=== PATIENT | male | born 1955 | race Caucasian/White ===

== ENCOUNTER 2017-11-15 13:01 | Outpatient (CLI) | payer BC ==
[~2017-11-15 13:01] MED LIST: Iopamidol 370 76% 100 ML VIAL ONE
--- NOTE | 2017-11-15 14:37 | CT ---
CT CHEST WITH IV CONTRAST: Date: 11/15/17 HISTORY: Abnormal prior imaging, follow-up exam. FINDINGS: Comparison made with exam of 04/12/17. No evidence of mediastinal, hilar, or axillary mass or lymphadenopathy seen. There are vascular calci fications without evidence of aneurysmal dilatation of the thoracic aorta. No pleural or pericardial effusions are seen. A small hiatal hernia is again noted. Postsurgical changes in the stomach and at the GE junction are again noted. Cysts in the kidneys are redemonstrated. Diffuse reticulonodular infiltrates in the lung hernandez are again seen. Scarring in the lung bases aga in noted. There are degenerative changes in the spine. IMPRESSION: Stable exam with bilateral diffuse reticulonodular infiltrates and scarring at the lung bases. POS: [facility]
== END 2017-11-15 13:02 | disposition home or self-care (01) ==
LOC: SCSCT 13:01
PROVIDERS: ATTEND Internal Medicine Critical Care Medicine
DX: R05 Cough (principal); J98.4 Other disorders of lung
CPT/HCPCS: 71260

== ENCOUNTER 2019-01-06 13:02 | Outpatient (CLI) | payer BC ==
[2019-01-06 14:45] LABS: Estimated GFR-MDRD - POC Greater than 90
--- NOTE | 2019-01-06 17:37 | CT ---
CT OF THE CHEST WITH CONTRAST: 01/06/19 COMPARISON: 11/15/17, 04/12/17. HISTORY: Abnormal findings seen on prior chest x-ray. TECHNIQUE: Multiple contiguous axial images were obtained in a CT of the chest with contrast. Coronal reformats were performed. FINDINGS: There is diffuse increased reticulonodular opacities in the lungs. This is more prominent in the lung bases and more prominent in the right lung than the left. A 1.0 cm mass-like area of opacity in the left lung base may represent atelectasis. More wedge shaped peripheral opacities in the left lung bas e also likely represent atelectasis. A 9 mm area of mass-like opacity in the right middle lobe may re present scarring or atelectasis. No pneumothorax or pleural effusion are seen. The heart is normal in size. There is a small hiatal hernia. Postsurgical changes are seen in the sto mach. No hilar or mediastinal lymphadenopathy are seen. The visualized subdiaphragmatic structures are unremarkable. Degenerative changes are seen in the spi ne. The chest wall soft tissues are unremarkable. IMPRESSION: 1. Nonspecific diffuse reticulonodular opacities in the lungs. 2. Peripheral opacities in the left lung base and in the right middle lobe may represent scarrin g or atelectasis. Masses cannot be entirely excluded. When compared to the prior examinations, the re ticulonodular pattern and the mass-like peripheral opacities are increasing, particularly when compar ed to the exam from 2017. POS: [facility]
== END 2019-01-06 13:03 | disposition home or self-care (01) ==
LOC: SCSCT 13:02
PROVIDERS: ATTEND Internal Medicine Critical Care Medicine
DX: R93.89 Abnormal findings on diagnostic imaging of other specified body structures (principal); R91.8 Other nonspecific abnormal finding of lung field
CPT/HCPCS: 71260; 82565

== ENCOUNTER 2019-01-29 10:03 | Outpatient (CLI) | payer BC ==
--- NOTE | 2019-01-29 13:31 | PET ---
EXAM: PET/CT HISTORY: Abnormal finding on CT scan of 01/06/2019. TECHNIQUE: PET scanning with CT attenuation correction was performed from the base of the brain to the proximal thighs following the intravenous administration of 12 millicuries [id number]. COMPARISON: None. CORRELATION: CT chest dated 01/06/2019 FINDINGS: No ana laura hypermetabolism is seen in the neck, chest, axillae, abdomen, pelvis or inguinal regions. There are hyper metabolic new areas of consolidation in the upper lobes bilaterally with an SUV of 3 on the right and 3.5 on the left. There is a 9 mm new paraspinal nodule in the superior segment of the right lower lobe with an SUV of 2.4. These findings are likely due to infection. No hypermetabolic liver, adrenal or skeletal lesions are seen. There is physiologic activity in the GI and tracts and the visualized portions of the brain. The CT scan used for attenuation correction demonstrates no evidence of pleural effusions or ascites. IMPRESSION: Hypermetabolic areas of consolidation in the lungs are likely due to infection. Recommend follow-up w ith CT scan after course of antibiotics.
== END 2019-01-29 10:04 | disposition home or self-care (01) ==
LOC: PET 10:03
PROVIDERS: ATTEND Internal Medicine Critical Care Medicine
DX: R93.89 Abnormal findings on diagnostic imaging of other specified body structures (principal)
CPT/HCPCS: 78815; A9552

== ENCOUNTER 2019-04-16 09:36 | Outpatient (CLI) | payer BC ==
--- NOTE | 2019-04-16 16:01 | CT ---
CT OF THE CHEST WITH CONTRAST 04/16/19 COMPARISON: 01/06/19. PET CT 01/29/19. HISTORY: Six cases of pneumonia since 2011. Abnormal PET scan in January. TECHNIQUE: Multiple contiguous axial images were obtained in a CT of the chest with contrast. Coronal reformats were performed. FINDINGS: There is significant improvement in the air space opacities seen in the lungs on the prior examinatio ns. Increased interstitial lung markings are seen in the bilateral lung bases. There is a subtle air space opacity measuring approximately 7 mm in size in the right upper lobe on image 28 of 65. No othe r infiltrates or nodules are seen. Scarring is seen in the left lung base. No pneumothorax or pleural effusion are seen. The heart is normal in size. Postsurgical changes are seen in the gastroesophageal junction. A fluid filled distended esophagus is seen. No hilar or mediastinal lymphadenopathy are seen. The visualized subdiaphragmatic structures and chest wall soft tissues are unremarkable. Degenerative changes are seen in the spine. IMPRESSION: 1. Interval improvement in multifocal pneumonia. 2. Fluid filled esophagus. This may be secondary to postsurgical changes at the gastroesophageal junction. Recurring aspiration causing the multifocal pneumonia is a possibility given the significa nt enlargement and fluid distention of the esophagus. POS: [facility]
== END 2019-04-16 09:37 | disposition home or self-care (01) ==
LOC: SCSCT 09:36
PROVIDERS: ATTEND Internal Medicine Critical Care Medicine
DX: R93.89 Abnormal findings on diagnostic imaging of other specified body structures (principal); J18.9 Pneumonia, unspecified organism
CPT/HCPCS: 71260; 82565; Q9967

== ENCOUNTER 2019-05-25 10:27 | Outpatient (CLI) | payer BC ==
--- NOTE | 2019-05-25 15:03 | CT ---
ABDOMEN CT WITH AND WITHOUT CONTRAST PELVIC CT WITH AND WITHOUT COTNRAST: HISTORY: Gastric sleeve. Appendectomy. Gross hematuria. FINDINGS: There are extensive nodular densities in the visualized lung bases. Correlation made with a CT chest from 04/16/2019 demonstrates a similar finding. Stable focal opacity in the right lower lobe measuri ng 1.1 x 1.3 cm. Liver, spleen, pancreas, and adrenal glands have appropriate attenuation and enhancement. No gastrohepatic, retrocrural, or periportal lymphadenopathy. There is stranding of the left abdominal mesentery, nonspecific. The findings are similar to a CT us ed for attenuation correction on a PET scan from January 29, 2019. There is a small amount of perineph edgard fluid and stranding. There is a small amount of fluid in both pericolic gutters. Findings are u nchanged. There is evidence of previous bariatric surgery. No evidence of bowel obstruction. The ileocecal ju nction is unremarkable. 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 Appendix is not appreciated. No evidence of inflammatory change of the cecal apex. Diverticulosis, without evidence of diverticulitis. RENAL CT: Noncontrast CT does not demonstrate any evidence of nephrolithiasis or significant perinephric fat st randing. Postcontrast images demonstrate symmetric enhancement of the renal parenchyma. Subcentimet er hypodensities of the left and right renal cortex are noted. The majority of the hypodensities in the right renal cortex are too small to characterize. There is a cyst in the mid ole left kidney fantasma suring 2.1 x 1.4 cm with an attenuation coefficient of -6 Hounsfield units on the noncontrast study. Delayed images demonstrate symmetric excretion into a nondistended/dilated intra- or extrarenal jacek ecting system. No filling defects. CT PELVIS: There is bladder wall thickening and perivesicular fat stranding. Correlate for cystitis versus a ne oplasm involving the bladder. No pelvic mass, lymphadenopathy, free air, or free fluid. There are no lytic or blastic lesions within the osseous structures. IMPRESSION: 1. No evidence of a renal mass. 2. No evidence of obstructive uropathy. 3. Bladder wall thickening and perivesicular stranding. Correlate for infectious or inflammatory pr ocess. Neoplasm could not be excluded. Consider a cystoscopy. POS: OFF
== END 2019-05-25 10:28 | disposition home or self-care (01) ==
LOC: SCSCT 10:27
PROVIDERS: ATTEND Urology
DX: R31.0 Gross hematuria (principal); N32.89 Other specified disorders of bladder
CPT/HCPCS: 74178; 82565; Q9967

== ENCOUNTER 2019-10-15 09:23 | Outpatient (CLI) | payer BC ==
--- NOTE | 2019-10-15 11:00 | RAD ---
UPPER GI: HISTORY: Previous gastric sleeve. Multiple episodes of recurrent pneumonia. COMPARISON: None. Exposure: 2.3 minutes, 170.18 mGy. 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 Patient was administered thick barium along with effervescent crystals, followed by thin barium. There is moderate distention of the thoracic esophagus with abrupt tapering near the gastroesophageal junction. Residual stomach from a previous gastric sleeve does not demonstrate any obvious filling defects. During intermittent fluoroscopy, there are numerous episodes of severe reflux along with ter tiary contractions. Contrast opacifies a grossly normal residual stomach and proximal small bowel loops. Postprocedure radiograph demonstrates persistent residual contrast in the distended thoracic esophagu s. There is a delay in passage of contrast despite appropriate delay. Note, all of the contrast is not delayed in terms of passage from the esophagus into the stomach. Lateral fluoroscopic view performed after the procedure demonstrates contrast opacifying the airway s uggesting at least a component of penetration. Better evaluation with speech pathologist is recommended. IMPRESSION: 1. Significant delay in passage of contrast from the dilated esophagus into the residual stomach. The re is evidence of significant reflux. 2. There is evidence of penetration with the thick and thin liquid consistencies. Dedicated modified barium swallow in the presence of speech pathologist is recommended. CODE T Transcribed Date/Time: 10/15/2019 11:06 AM
== END 2019-10-15 09:24 | disposition home or self-care (01) ==
LOC: RAD 09:23
PROVIDERS: ATTEND Physician Assistant Medical
DX: Z12.11 Encounter for screening for malignant neoplasm of colon (principal); J18.9 Pneumonia, unspecified organism; K21.9 Gastro-esophageal reflux disease without esophagitis
CPT/HCPCS: 74246

== ENCOUNTER 2019-10-20 09:52 | Outpatient (CLI) | payer BC ==
--- NOTE | 2019-10-21 09:45 | RAD ---
Exam: Modified barium swallow, the presence speech pathologist HISTORY: Dysphagia, oral pharyngeal phase. Gastroesophageal reflux disease without esophagitis FINDINGS: In the presence of speech pathologist, the patient was administered puree, nectar thick, thin liquid, mechanical soft and regular texture consistencies. Patient was also administered a barium tablet. There is premature spillage. There is evidence of penetration and aspiration. IMPRESSION: Penetration and aspiration. Please of a speech pathologist report for feeding recommendat ion
== END 2019-10-20 09:53 | disposition home or self-care (01) ==
PROVIDERS: ATTEND Physician Assistant Medical
DX: R13.12 Dysphagia, oropharyngeal phase (principal); K21.9 Gastro-esophageal reflux disease without esophagitis
CPT/HCPCS: 74230

== ENCOUNTER 2021-03-29 15:28 | Outpatient (CLI) | payer BC | END 2021-03-29 15:29 | disposition home or self-care (01) | LOC: BICRAD 15:28 | PROVIDERS: ATTEND Internal Medicine Infectious Disease | DX: M86.9 Osteomyelitis, unspecified (principal); Z98.890 Other specified postprocedural states ==

== ENCOUNTER 2022-07-02 13:29 | Day surgery (SDC) | payer BC | END 2022-07-02 19:23 | disposition home or self-care (01) | LOC: ONC/OP 13:29 | PROVIDERS: ATTEND Internal Medicine | DX: Z45.2 Encounter for adjustment and management of vascular access device (principal) | CPT/HCPCS: 96523; 99211; G0463 ==

== ENCOUNTER 2023-09-05 10:55 | Outpatient (CLI) | payer BC | END 2023-09-05 10:56 | disposition home or self-care (01) | LOC: SCSRAD 10:55 | PROVIDERS: ATTEND Family Medicine | DX: R09.02 Hypoxemia (principal); R91.8 Other nonspecific abnormal finding of lung field; Z20.822 Contact with and (suspected) exposure to COVID-19 | CPT/HCPCS: 71046; 87635 ==